=== PATIENT | male | born 1995 | race Caucasian/White ===

== ENCOUNTER 2018-04-20 07:40 | Emergency (ER) | payer OTHER ==
[~2018-04-20] VITALS: Ht 193 cm; Wt 122.5 kg
[2018-04-20 08:17] VITALS: BP 123/85
== END 2018-04-20 08:19 | disposition home or self-care (01) ==
LOC: ER 07:40
DX: J06.9 Acute upper respiratory infection, unspecified (principal); F17.210 Nicotine dependence, cigarettes, uncomplicated

== ENCOUNTER 2018-05-06 08:43 | Emergency (ER) | payer OTHER ==
[~2018-05-06] VITALS: Ht 193 cm; Wt 114.8 kg
[2018-05-06] MEDS ORDERED: LOPERAMIDE 2 MG2 M1 PO (09:20)
[2018-05-06 10:23] VITALS: BP 117/85
== END 2018-05-06 09:15 | disposition home or self-care (01) ==
LOC: ER 08:43
DX: R19.7 Diarrhea, unspecified (principal); F17.210 Nicotine dependence, cigarettes, uncomplicated

== ENCOUNTER 2018-05-10 06:26 | Emergency (ER) | payer OTHER ==
[~2018-05-10] VITALS: Ht 193 cm; Wt 113.4 kg
[~2018-05-10 06:26] MED LIST: LOPERAMIDE 2 MG2 M1 PO
[2018-05-10 06:34] VITALS: BP 131/88
[2018-05-10] MEDS ORDERED: VICKS BABYRUB S50 GM (06:37)
== END 2018-05-10 07:07 | disposition home or self-care (01) ==
LOC: ER 06:26
DX: R09.81 Nasal congestion (principal)

== ENCOUNTER 2018-06-07 21:06 | Emergency (ER) | payer OTHER ==
[~2018-06-07] VITALS: Ht 193 cm; Wt 115.7 kg
[~2018-06-07 21:06] MED LIST changes: +VICKS BABYRUB S50 GM
[2018-06-07 22:02] VITALS: BP 126/84
== END 2018-06-07 22:05 | disposition home or self-care (01) ==
LOC: ER 21:06
DX: J06.9 Acute upper respiratory infection, unspecified (principal); F17.210 Nicotine dependence, cigarettes, uncomplicated